=== PATIENT | female | born 2005 | race Hispanic/Latino ===

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

== ENCOUNTER 2023-05-30 09:07 | Emergency (ER) | payer MEDICAID, OTHER ==
[2023-05-30] MEDS ORDERED: OLANZapine 10 MG VIAL IM SCH (10:15)
[2023-05-30] MEDS ORDERED: Sterile Water 10 ML ONE (10:17)
[2023-05-30 10:47] LABS: #Eosinphils 0.1 10x3/uL (0.0-0.5); #Monocytes 0.5 10x3/uL (0.0-1.1); %Basophils 0.8 % (0.0-2.0); %Eosinophils 0.9 % (0.0-6.0); %Lymphocytes 32.1 % (18.0-47.0); %Monocytes 9.2 % (0.0-10.0); %Neutrophils 56.8 % (40.0-75.0); Hematocrit 32.9 % (34.9-44.5); Hemoglobin 11.5 g/dL (12.0-15.5); Mean Corpuscular Hemoglobin 31.4 pg (27.0-33.0); Mean Corpuscular Volume 89.9 fl (81.6-98.3); Mean Platelet Volume 12.9 fl (7.4-10.4); Platelet Count 191 10x3/uL (150-450); RBC Distribution Width 13.4 % (11.5-14.5); Red Blood Cell (RBC) Count 3.66 10x6/uL (3.90-5.03); White Blood Cell (WBC) Count 5.3 10x3/uL (3.5-10.5)
[2023-05-30 11:02] LABS: ALT (SGPT) 22 U/L (8-55); AST (SGOT) 42 U/L (5-30); Albumin 4.2 g/dL (3.5-5.0); Alkaline Phosphatase 69 U/L (40-100); Anion Gap 17 mmol/L (10-20); BUN (Urea Nitrogen) 6 mg/dL (8.4-21.0); Bilirubin, Total 0.9 mg/dL (0.2-1.2); Calc. Creatinine Clearance 0 mL/min (70-130); Calcium 8.9 mg/dL (7.8-10.44); Carbon Dioxide 15 mmol/L (22-29); Chloride 111 mmol/L (98-107); Estimated GFR 130; Globulin 2.8 g/dL (2.4-3.5); Glucose 81 mg/dL (70-105); Potassium 3.1 mmol/L (3.5-5.1); Sodium 140 mmol/L (136-145)
[2023-05-30 11:22] LABS: Influenza A by NAA Not Detected (NotDetected); Influenza B by NAA Not Detected (NotDetected); SARS-CoV-2 NAA Rapid Test Not Detected (NotDetected)
[2023-05-30] MEDS ORDERED: Lorazepam 2 MG/ML VIAL ONE (11:47)
[2023-05-30 13:24] LABS: Bilirubin 1+ (Negative); Blood, Urine Negative (Negative); Clarity Slightly Cloudy (Clear); Glucose, Urine (Dipstick) Normal (Negative); Ketone, Urine 150 mg/dL (Negative); Leukocyte 25 (Negative); Nitrite Negative (Negative); Protein, Urine (Dipstick) 15 mg/dl (Neg-Trace); Urobilinogen 12 mg/dL (Less than 2)
[2023-05-30 13:34] LABS: Lactic Acid 0.9 mmol/L (0.5-2.2)
[2023-05-30 13:58] LABS: CAUTI Indications for Culture Pelvic or flank pain; RBC/HPF 0-3 HPF (0-3)
[2023-05-30 14:00] LABS: Bacteria/HPF 2+ HPF (None Seen); Mucous/LPF 4+ LPF (<2+)
[2023-05-30 14:03] LABS: Urine Culture Reflex No No
== END 2023-05-30 14:28 | disposition home or self-care (01) ==
LOC: CSHERS 09:07
DX: S00.83XA Contusion of other part of head, initial encounter (principal); S40.022A Contusion of left upper arm, initial encounter; S40.021A Contusion of right upper arm, initial encounter; S80.12XA Contusion of left lower leg, initial encounter; S80.11XA Contusion of right lower leg, initial encounter; F84.0 Autistic disorder; F80.9 Developmental disorder of speech and language, unspecified; X78.9XXA Intentional self-harm by unspecified sharp object, initial encounter
CPT/HCPCS: 36415; 71045; 74018; 80053; 81001; 83605; 85025; 96372; 99285; J2060

== ENCOUNTER 2023-08-19 11:25 | Emergency (ER) | payer OTHER ==
[2023-08-19] MEDS ORDERED: Lorazepam 2 MG/ML VIAL ONE (11:43)
[2023-08-19 12:43] LABS: #Basophils 0.04 10x3/uL (0.0-0.2); #Eosinphils 0.06 10x3/uL (0.0-0.5); #Monocytes 0.81 10x3/uL (0.0-1.1); #Neutrophils 5.93 10x3/uL (1.5-8.4); %Basophils 0.4 % (0.0-2.0); %Eosinophils 0.7 % (0.0-6.0); %Lymphocytes 24.1 % (18.0-47.0); %Monocytes 8.9 % (0.0-10.0); %Neutrophils 65.5 % (40.0-75.0); Hematocrit 34.5 % (34.9-44.5); Hemoglobin 11.2 g/dL (12.0-15.5); Mean Corpuscular HGB CONC 32.5 g/dL (32.0-36.0); Mean Corpuscular Hemoglobin 29.9 pg (27.0-33.0); Mean Corpuscular Volume 92.2 fl (81.6-98.3); Mean Platelet Volume 12.6 fl (7.4-10.4); Platelet Count 249 10x3/uL (150-450); RBC Distribution Width 13.8 % (11.5-14.5); Red Blood Cell (RBC) Count 3.74 10x6/uL (3.90-5.03); White Blood Cell (WBC) Count 9.1 10x3/uL (3.5-10.5)
[2023-08-19] MEDS ORDERED: Sterile Water 10 ML VIAL FS SCH ×2 (12:45)
[2023-08-19] MEDS ORDERED: OLANZapine 10 MG VIAL IM SCH (12:45)
[2023-08-19 12:54] LABS: Influenza A by NAA Not Detected (NotDetected); Influenza B by NAA Not Detected (NotDetected); SARS-CoV-2 NAA Rapid Test Not Detected (NotDetected)
[2023-08-19 12:55] LABS: ALT (SGPT) 32 U/L (8-55); Albumin 3.9 g/dL (3.5-5.0); Alkaline Phosphatase 80 U/L (40-100); Anion Gap 17 mmol/L (10-20); BUN (Urea Nitrogen) 10 mg/dL (8.4-21.0); Bilirubin, Total 0.8 mg/dL (0.2-1.2); CK (CPK) 194 U/L (29-168); Calc. Creatinine Clearance 0 mL/min (70-130); Carbon Dioxide 17 mmol/L (22-29); Chloride 110 mmol/L (98-107); Estimated GFR 118; Globulin 3.3 g/dL (2.4-3.5); Glucose 93 mg/dL (70-105); Potassium 4.3 mmol/L (3.5-5.1); Protein, Total 7.2 g/dL (6.0-8.3); Sodium 140 mmol/L (136-145)
[2023-08-19 12:56] LABS: Acetaminophen 17 mcg/mL (10.0-30.0); Alcohol Less than 10.0 mg/dL (Less than 10); Lipase 43 U/L (8-78); Salicylate Less than 8.0 mg/dL (15.0-30.0)
[2023-08-19 13:01] LABS: AST (SGOT) 55 U/L (5-30)
[2023-08-19 13:02] LABS: Magnesium 1.8 mg/dL (1.7-2.2); Troponin I Less than 0.010 ng/mL (< 0.028)
[2023-08-19 13:08] LABS: BHCG - Serum Negative (NEGATIVE); Pregs Control Background? CLEAR/WHITE (CLR/WHITE); Pregs Control Bar Appear? YES (CONTROL BAR)
[2023-08-19] MEDS ORDERED: Iopamidol 300 61% 100 ML VIAL FS ONE (13:24)
[2023-08-19] MEDS ORDERED: Acetaminophen 650 MG Suppository ONE (13:29)
[2023-08-19] MEDS ORDERED: cefTRIAXone (ROCEPHIN) 2 GM VIAL ONE (14:23)
[2023-08-19 14:44] LABS: INR-International Normal Ratio 1.1; PTT 24.9 sec (22.0-33.0); Prothrombin Time 11.8 sec (9.5-12.1)
[2023-08-19 15:41] LABS: Lactic Acid 1.1 mmol/L (0.5-2.2)
== END 2023-08-19 16:28 | disposition short-term general hospital (02) ==
LOC: CSHERS 11:25 → EEVIPCON 11:25 → CSHERS 16:28
DX: S06.6XAA Traumatic subarachnoid hemorrhage with loss of consciousness status unknown, initial encounter (principal); S30.1XXA Contusion of abdominal wall, initial encounter; R45.88 Nonsuicidal self-harm; F84.0 Autistic disorder; R00.0 Tachycardia, unspecified; W22.8XXA Striking against or struck by other objects, initial encounter
CPT/HCPCS: 36415; 70450; 71260; 72125; 74177; 80053; 80307; 82550; 83605; 83690; 83735; 84484; 84703; 85025; 85610; 85730; 87040; 87077; 87149; 93005; 94760; J0696; J2060; Q9967